=== PATIENT | female | born 1965 | race Two or more races ===

== ENCOUNTER 2020-04-18 11:09 | Emergency (ER) | payer SELFPAY ==
[~2020-04-18] VITALS: Ht 152.4 cm; Wt 77.2 kg
[2020-04-18] MEDS ORDERED: LABETALOL 20 MG/4 ML DISP.SYRIN. IVP ONE (13:15)
--- NOTE | 2020-04-18 13:21 | RAD ---
EXAM: Chest, single view. HISTORY: Hypertension. COMPARISON: None. FINDINGS: A frontal view of the chest is obtained. There is no infiltrate, pleural effusion or pneumo thorax. The heart is prominent in size, likely accentuated due to portable technique. IMPRESSION: No acute no acute pulmonary finding. Electronically signed by: Bia Boston MD (04/18/2020 1:19 PM) [facility]
[2020-04-18 13:45] LABS: BASO # 0.1 x10^3/uL (0.0-0.2); BASO % 1 % (0-3); EOS # 0.2 x10^3/uL (0.0-0.7); EOS % 2 % (0-3); HEMATOCRIT 39.5 % (36.0-47.0); HEMOGLOBIN 13.3 g/dL (12.0-15.5); LYMPH # 1.6 x10^3/uL (1.0-4.8); LYMPH % 17 % (24-48); MEAN CORPUSCULAR HEMOGLOBIN 29 pg (25-35); MEAN CORPUSCULAR HGB CONC 34 g/dL (31-37); MEAN CORPUSCULAR VOLUME 85 fL (79-100); MONO # 0.6 x10^3/uL (0.0-1.1); MONO % 6 % (0-9); NEUT # 7.4 x10^3/uL (1.8-7.7); NEUT % 75 % (31-73); PLATELET COUNT 335 x10^3/uL (140-400); RED BLOOD COUNT 4.67 x10^6/uL (3.50-5.40); RED CELL DISTRIBUTION WIDTH 13.1 % (11.5-14.5); WHITE BLOOD COUNT 9.8 x10^3/uL (4.0-11.0)
[2020-04-18 13:46] LABS: BARBITURATES NEG (NEG); BENZODIAZEPINES NEG (NEG); BILIRUBIN,URINE NEGATIVE (NEG); CANNABINOIDS NEG (NEG); CLARITY,URINE CLEAR; COCAINE NEG (NEG); COLOR,URINE YELLOW; METHADONE NEG (NEG); NITRITE,URINE NEGATIVE (NEG); OPIATES NEG (NEG); PH,URINE 6.5 (<5.0-8.0); PHENCYCLIDINE NEG (NEG); PROTEIN,URINE NEGATIVE (NEG-TRACE); UROBILINOGEN,URINE 0.2 mg/dL (0.2 mg/dL)
[2020-04-18 13:49] LABS: AMPHETAMINE/METHAMPHETAMINE NEG (NEG)
[2020-04-18 13:51] LABS: BACTERIA,URINE 0 /HPF (0-FEW); RBC,URINE 0 /HPF (0-2); WBC,URINE 0 /HPF (0-4)
[2020-04-18 13:52] LABS: CALCIUM 9.4 mg/dL (8.5-10.1); CREATININE 0.8 mg/dL (0.6-1.0); GFR 74.5; POTASSIUM 3.6 mmol/L (3.5-5.1)
[2020-04-18 13:57] LABS: ALBUMIN/GLOBULIN RATIO 1.1 (1.0-1.7); MAGNESIUM 2.2 mg/dL (1.8-2.4); TOTAL BILIRUBIN 0.4 mg/dL (0.2-1.0); TOTAL PROTEIN 7.5 g/dL (6.4-8.2)
[2020-04-18] MEDS ORDERED: cloNIDine HCL 0.1 MG TABLET PO ONE ×2 (14:30→16:00)
[2020-04-18] MEDS ORDERED: AMLO-187 PO (17:11)
--- NOTE | 2020-04-18 17:12 | PHYS DOC ---
Past Medical History Past Medical History: No Pertinent History (MICHAEL EUGENE APRN) Past Surgical History: Hysterectomy (MICHAEL EUGENE APRN) Smoking Status: Never Smoker Alcohol Use: None (MICHAEL EUGENE APRN) General Adult EDM: Chief Complaint: HYPERTENSION HPI: HPI: Patient is a 54 year old female who presents to the ED today for high blood pressure. Patient denies any previous history of hypertension. She states she went to a local clinic for a Pap smear and her blood pressure was high. Patient denies any chest pain, headache or any other symptoms. 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 (MICHAEL EUGENE APRN) Review of Systems: Review of Systems: Constitutional: Denies fever or chills. [] Eyes: Denies change in visual acuity. [] HENT: Denies nasal congestion or sore throat. [] Respiratory: Denies cough or shortness of breath. [] Cardiovascular: Reports high blood pressure. Denies chest pain or edema. [] GI: Denies abdominal pain, nausea, vomiting, bloody stools or diarrhea. [] : Denies dysuria. [] Musculoskeletal: Denies back pain or joint pain. [] Integument: Denies rash. [] Neurologic: Denies headache, focal weakness or sensory changes. [] Psychiatric: Denies depression or anxiety. [] (MICHAEL EUGENE APRN) Heart Score: Risk Factors: Risk Factors: DM, Current or recent (<one month) smoker, HTN, HLP, family history of CAD, obesity. Risk Scores: Score 0 - 3: 2.5% MACE over next 6 weeks - Discharge Home Score 4 - 6: 20.3% MACE over next 6 weeks - Admit for Clinical Observation Score 7 - 10: 72.7% MACE over next 6 weeks - Early Invasive Strategies (MICHAEL EUGENE APRN) Current Medications: Current Medications Medications (Trade) Dose Ordered Sig/Milagros Start Time Stop Time Status Last Admin Dose Admin Clonidine HCl (Catapres) 0.2 mg 1X ONCE 04/18/20 16:00 04/18/20 16:01 DC Labetalol HCl (Normodyne Iv Push) 10 mg 1X ONCE 04/18/20 13:15 04/18/20 13:16 DC 04/18/20 13:33 10 MG (MICHAEL EUGENE APRN) Allergies: Allergies: Allergies Coded Allergies Type Severity Reaction Last Updated Verified No Known Drug Allergies 04/18/20 No (MICHAEL EUGENE APRN) Physical Exam: PE: Constitutional: Well developed, well nourished, no acute distress, non-toxic appearance. [] HENT: Normocephalic, atraumatic, bilateral external ears normal, oropharynx moist, no oral exudates, nose normal. [] Eyes: PERRLA, EOMI, conjunctiva normal, no discharge. [] Neck: Normal range of motion, no tenderness, supple, no stridor. [] Cardiovascular:Heart rate regular rhythm, no murmur [] Lungs & Thorax: Bilateral breath sounds clear to auscultation [] Abdomen: Bowel sounds normal, soft, no tenderness, no masses, no pulsatile masses. [] Skin: Warm, dry, no erythema, no rash. [] Back: No tenderness, no CVA tenderness. [] Extremities: No tenderness, no cyanosis, no clubbing, ROM intact, no edema. [] Neurologic: Alert and oriented X 3, normal motor function, normal sensory function, no focal deficits noted. [] Psychologic: Affect normal, judgement normal, mood normal. [] (MICHAEL EUGENE APRN) Current Patient Data: Labs: Laboratory Tests Test 04/18/20 12:52 04/18/20 13:26 04/18/20 16:00 Urine Collection Type Unknown Urine Color Yellow Urine Clarity Clear Urine pH 6.5 (<5.0-8.0) Urine Specific Aylett 1.010 (1.000-1.030) Urine Protein Negative mg/dL (NEG-TRACE) Urine Glucose (UA) Negative mg/dL (NEG) Urine Ketones (Stick) Negative mg/dL (NEG) Urine Blood Negative (NEG) Urine Nitrite Negative (NEG) Urine Bilirubin Negative (NEG) Urine Urobilinogen Dipstick 0.2 mg/dL (0.2 mg/dL) Urine Leukocyte Esterase Negative (NEG) Urine RBC 0 /HPF (0-2) Urine WBC 0 /HPF (0-4) Urine Squamous Epithelial Cells Few /LPF Urine Bacteria 0 /HPF (0-FEW) Urine Mucus Slight /LPF Urine Opiates Screen Neg (NEG) Urine Methadone Screen Neg (NEG) Urine Barbiturates Neg (NEG) Urine Phencyclidine Screen Neg (NEG) Urine Amphetamine/Methamphetamine Neg (NEG) Urine Benzodiazepines Screen Neg (NEG) Urine Cocaine Screen Neg (NEG) Urine Cannabinoids Screen Neg (NEG) Urine Ethyl Alcohol Neg (NEG) White Blood Count 9.8 x10^3/uL (4.0-11.0) Red Blood Count 4.67 x10^6/uL (3.50-5.40) Hemoglobin 13.3 g/dL (12.0-15.5) Hematocrit 39.5 % (36.0-47.0) Mean Corpuscular Volume 85 fL (79-100) Mean Corpuscular Hemoglobin 29 pg (25-35) Mean Corpuscular Hemoglobin Concent 34 g/dL (31-37) Red Cell Distribution Width 13.1 % (11.5-14.5) Platelet Count 335 x10^3/uL (140-400) Neutrophils (%) (Auto) 75 % (31-73) H Lymphocytes (%) (Auto) 17 % (24-48) L Monocytes (%) (Auto) 6 % (0-9) Eosinophils (%) (Auto) 2 % (0-3) Basophils (%) (Auto) 1 % (0-3) Neutrophils # (Auto) 7.4 x10^3/uL (1.8-7.7) Lymphocytes # (Auto) 1.6 x10^3/uL (1.0-4.8) Monocytes # (Auto) 0.6 x10^3/uL (0.0-1.1) Eosinophils # (Auto) 0.2 x10^3/uL (0.0-0.7) Basophils # (Auto) 0.1 x10^3/uL (0.0-0.2) Sodium Level 142 mmol/L (136-145) Potassium Level 3.6 mmol/L (3.5-5.1) Chloride Level 105 mmol/L (98-107) Carbon Dioxide Level 27 mmol/L (21-32) Anion Gap 10 (6-14) Blood Urea Nitrogen 13 mg/dL (7-20) Creatinine 0.8 mg/dL (0.6-1.0) Estimated GFR (Cockcroft-Gault) 74.5 BUN/Creatinine Ratio 16 (6-20) Glucose Level 91 mg/dL (70-99) Calcium Level 9.4 mg/dL (8.5-10.1) Magnesium Level 2.2 mg/dL (1.8-2.4) Total Bilirubin 0.4 mg/dL (0.2-1.0) Aspartate Amino Transferase (AST) 18 U/L (15-37) Alanine Aminotransferase (ALT) 29 U/L (14-59) Alkaline Phosphatase 85 U/L (46-116) Troponin I Quantitative < 0.017 ng/mL (0.000-0.055) < 0.017 ng/mL (0.000-0.055) DY-Vbl-P-Type Natriuretic Peptide 205 pg/mL (0-124) H Total Protein 7.5 g/dL (6.4-8.2) Albumin 4.0 g/dL (3.4-5.0) Albumin/Globulin Ratio 1.1 (1.0-1.7) Thyroid Stimulating Hormone (TSH) 3.422 uIU/mL (0.358-3.74) Laboratory Tests 04/18/20 13:26 Laboratory Tests 04/18/20 13:26 Vital Signs: Vital Signs Date Time Temp Pulse Resp B/P (MAP) Pulse Ox O2 Delivery O2 Flow Rate FiO2 04/18/20 16:33 62 130/69 04/18/20 14:39 18 98 Room Air 04/18/20 12:50 98.0 98.0 (MICHAEL EUGENE APRN) EKG: EK interpreted by Dr. Avila sinus rhythm heart rate 68 no STEMI [] (MICHAEL EUGENE APRN) Radiology/Procedures: Radiology/Procedures: []PROCEDURE: PORTABLE CHEST 1V EXAM: Chest, single view. HISTORY: Hypertension. COMPARISON: None. FINDINGS: A frontal view of the chest is obtained. There is no infiltrate, pleural effusion or pneumothorax. The heart is prominent in size, likely accentuated due to portable technique. IMPRESSION: No acute no acute pulmonary finding. Electronically signed by: Bia Quintero MD (04/18/2020 1:19 PM) [facility] DICTATED and SIGNED BY: BIA QUINTERO MD DATE: 04/18/20 [id number] 0 (MICHAEL EUGENE APRN) Course & Med Decision Making: Course & Med Decision Making Pertinent Labs and Imaging studies reviewed. (See chart for details) This is a 54-year-old female patient presenting to the ED today for high blood pressure that was noted at her local clinic when she went for Pap smear. Patient has no previous history of hypertension, does not have any other symptoms. Blood pressure on arrival to the ED low 200s over high 90s with heart rates in the 60s. CBC, CMP, troponin and UA negative for any acute findings. Patient was given 1 dose of labetalol, blood pressure came back to 130s over 80s. Discharge to home with amlodipine. Follow-up with PCP in the course of next week (MICHAEL EUGENE APRN) Dragon Disclaimer: Dragon Disclaimer: This electronic medical record was generated, in whole or in part, using a voice recognition dictation system. (MICHAEL EUGENE APRN) Departure Departure Impression: Primary Impression: Accelerated hypertension Disposition: 01 DC HOME SELF CARE/HOMELESS Condition: STABLE Referrals: UNKNOWN PCP NAME (PCP) follow up with your doctor next week Patient Instructions: Hypertension Additional Instructions: You have high blood pressure. Take the prescribed medicine as ordered. Follow- up with your doctor next week. Consider lifestyle changes including weight loss, exercise, heart healthy diet. Scripts Amlodipine Besylate (AMLODIPINE BESYLATE) 10 Mg Tablet 10 MG PO DAILY, #30 TAB Prov: MICHAEL EUGENE APRN 04/18/20 Attending Signature Attending Signature I have reviewed the PA/WORSHIP PASTOR's note and plan of care. I was available for consultation as needed during the patient's visit in the emergency department. I agree with the clinical impression, plan, and disposition. (LORRAINE AVILA DO) MICHAEL EUGENE APRN Apr 18, 2020 17:12 LORRAINE AVILA DO Apr 19, 2020 07:00
[2020-04-18 17:32] VITALS: BP 136/72
== END 2020-04-18 17:56 | disposition home or self-care (01) ==
LOC: ER 11:09
DX: I10 Essential (primary) hypertension (principal); Z90.710 Acquired absence of both cervix and uterus
CPT/HCPCS: 36415; 71045; 80053; 80307; 81001; 83735; 83880; 84443; 84484; 85025; 93005; 96374; 99285; J3490

== ENCOUNTER → 2020-06-21 | Outpatient (CLI) | payer OTHER ==
[~2020-06-21] MED LIST: AMLO-187 PO; LIDOCAINE 1% Multi-Dose 20 ML VIAL. INJ ONE
--- NOTE | 2020-06-24 14:08 | PATHOLOGY ---
[facility] Accession Number: [id number] . 01 Material submitted: . breast - RIGHT BREAST BIOPSY. Modifiers: right . 01 Clinical history: . RIGHT BREAST MASS . 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 LBQ 06/24/2020 0936 Local . 02 Comment: There is no atypia or evidence of malignancy. (JPM/db; 06/24/2020) . 02 Electronically signed: . Benny Contreras MD, Pathologist NPI- [id number] . 01 Gross description: . Received in formalin labeled "Karon Nguyễn, right breast biopsy" are 5 cylindrical fabian yellow core fragments ranging from 0.4-1.2 cm in length each having a diameter of 0.2 cm. The specimen is entirely submitted in cassette A1-A3. The specimen was removed from the patient at 1234 and placed in formalin at 1235 on June 21, 2020, and not removed from formalin until 1850 on June 23, 2020.([facility]; 06/22/2020) GZA/GZA 06/24/2020 0933 Local . 02 Pathologist provided ICD-10: D24.1, N60.21, N62 . 02 CPT . 037300 Specimen Comment: Report sent to / Performed at: 01 [facility] [address] [facility] [address] [place] [id number] MD Irving Gutierrez MD Phone: [phone] Performed at: 02 [facility] [address] [place], [place] [id number] MD Benny Contreras MD Phone: [phone]
--- NOTE | 2020-06-24 15:52 | RAD ---
Examination: 1. Ultrasound-guided right breast core needle biopsy. 2. Post procedure right mammogram INDICATION: 65-year-old Tanzanian-speaking only with the mass in the right breast recommended for ultra sound-guided core needle biopsy. COMPARISON: Bilateral screening mammogram of 06/03/2020 and right breast ultrasound of that same day. TECHNIQUE AND FINDINGS: Informed consent was obtained and an appropriate procedural pause observed using telephone interpreti ng surfaces. Standard sterile technique, ultrasound guidance and local anesthesia was utilized in dir ecting a 14-gauge spring-loaded biopsy needle from an inferolateral approach into the right breast an d multiple core biopsy samples were obtained of the 1.5 cm mass reported to be at the 9:00 position 2 cm from the nipple. Samples were placed in formalin and an open padlock-shaped biopsy marker was dep loyed in the mass. Post procedure mammogram showed heterogeneously dense breast parenchyma and satisfactory deployment o f the biopsy marker in the right breast with no postbiopsy hematoma. Puncture site was dressed and patient released to follow up with her referring physician with written postprocedure instructions (in [place]anian). There were no apparent complications. IMPRESSION: Successful ultrasound-guided right breast core needle biopsy of a mass in the lower outer right breas t. Pathology results are pending. An addendum will be issued once pathology results become available. Electronically signed by: Stephen Damon MD (06/24/2020 3:49 PM) [id number]
== END | disposition home or self-care (01) ==
LOC: US 10:15
PROVIDERS: ATTEND Nurse Practitioner
DX: R92.8 Other abnormal and inconclusive findings on diagnostic imaging of breast (principal); Z79.899 Other long term (current) drug therapy
CPT/HCPCS: 19083; 77065; C1713